=== PATIENT | male | born 1965 | race Caucasian/White ===

== ENCOUNTER 2016-10-08 13:32 | Outpatient (RCR) | payer BC, OTHER ==
[2016-10-08 15:56] LABS: BASOPHILS % (AUTO) 0 % (0-10); EOSINOPHILS # (AUTO) 0.2 10^3/uL (0.0-0.3); EOSINOPHILS % (AUTO) 2 % (0-10); LYMPHOCYTES # (AUTO) 2.4 X 10^3 (1.0-4.0); LYMPHOCYTES % (AUTO) 24 % (12-44); MEAN CORPUSCULAR HEMOGLOBIN 30 PG (25-34); MEAN CORPUSCULAR HGB CONC 34 G/DL (32-36); MEAN CORPUSCULAR VOLUME 89 FL (80-99); MEAN PLATELET VOLUME 8.9 FL (7.4-10.4); MONOCYTES # (AUTO) 0.7 X 10^3 (0.0-1.0); MONOCYTES % (AUTO) 7 % (0-12); NEUTROPHILS # (AUTO) 6.7 X 10^3 (1.8-7.8); NEUTROPHILS % (AUTO) 67 % (42-75); PLATELET COUNT 491 10^3/uL (130-400); RED BLOOD COUNT 5.28 10^6/uL (4.35-5.85)
[2016-10-08 16:16] LABS: ALANINE AMINOTRANSFERASE 14 U/L (0-55); ALBUMIN 4.9 G/DL (3.2-4.5); ANION GAP 11 MMOL/L (5-14); ASPARTATE AMINO TRANSFERASE 14 U/L (5-34); BILIRUBIN,TOTAL 0.5 MG/DL (0.1-1.0); BLOOD UREA NITROGEN 11 MG/DL (7-18); BUN/CREATININE RATIO 12; CALCIUM 10.7 MG/DL (8.5-10.1); CARBON DIOXIDE 27 MMOL/L (21-32); CHLORIDE 100 MMOL/L (98-107); CREATININE SERUM 0.91 MG/DL (0.60-1.30); GFR ESTIMATED > 60; GLUCOSE 81 MG/DL (70-105); SODIUM 138 MMOL/L (135-145); TOTAL PROTEIN 8.8 G/DL (6.4-8.2)
[2016-10-08 16:36] LABS: THYROID STIMULATING HORMONE 11.15 UIU/ML (0.35-4.94)
== END 2017-01-06 | disposition home or self-care (01) ==
LOC: ONC 13:32
PROVIDERS: ATTEND Internal Medicine Hematology & Oncology
DX: R22.1 Localized swelling, mass and lump, neck (principal); E03.9 Hypothyroidism, unspecified; J18.9 Pneumonia, unspecified organism; R13.19 Other dysphagia; Z85.89 Personal history of malignant neoplasm of other organs and systems; Z87.01 Personal history of pneumonia (recurrent)
CPT/HCPCS: 36415; 80053; 84443; 85025; 99214

== ENCOUNTER 2018-02-27 14:27 | Outpatient (RCR) | payer BC ==
[2018-02-27 14:36] LABS: BASOPHILS % (AUTO) 0 % (0-10); EOSINOPHILS # (AUTO) 0.3 10^3/uL (0.0-0.3); EOSINOPHILS % (AUTO) 3 % (0-10); HEMATOCRIT 40 % (40-54); HEMOGLOBIN 14.3 G/DL (13.3-17.7); LYMPHOCYTES # (AUTO) 1.8 X 10^3 (1.0-4.0); LYMPHOCYTES % (AUTO) 19 % (12-44); MEAN CORPUSCULAR HEMOGLOBIN 31 PG (25-34); MEAN CORPUSCULAR HGB CONC 36 G/DL (32-36); MEAN CORPUSCULAR VOLUME 87 FL (80-99); MEAN PLATELET VOLUME 8.2 FL (7.4-10.4); MONOCYTES # (AUTO) 0.9 X 10^3 (0.0-1.0); MONOCYTES % (AUTO) 9 % (0-12); NEUTROPHILS # (AUTO) 6.9 X 10^3 (1.8-7.8); NEUTROPHILS % (AUTO) 69 % (42-75); PLATELET COUNT 332 10^3/uL (130-400); RED BLOOD COUNT 4.58 10^6/uL (4.35-5.85); RED CELL DISTRIBUTION WIDTH 12.7 % (10.0-14.5); WHITE BLOOD COUNT 9.9 10^3/uL (4.3-11.0)
[2018-02-27 14:58] LABS: ALANINE AMINOTRANSFERASE 22 U/L (0-55); ALBUMIN 4.5 GM/DL (3.2-4.5); ALKALINE PHOSPHATASE 72 U/L (40-136); BILIRUBIN,TOTAL 0.5 MG/DL (0.1-1.0); BUN/CREATININE RATIO 13; CALCIUM 10.3 MG/DL (8.5-10.1); CARBON DIOXIDE 24 MMOL/L (21-32); CHLORIDE 99 MMOL/L (98-107); GFR ESTIMATED > 60; GLUCOSE 98 MG/DL (70-105); POTASSIUM 3.8 MMOL/L (3.6-5.0); SODIUM 133 MMOL/L (135-145); TOTAL PROTEIN 7.9 GM/DL (6.4-8.2)
== END 2018-03-09 | disposition home or self-care (01) ==
LOC: ONC 14:27
PROVIDERS: ATTEND Internal Medicine Hematology & Oncology
DX: R13.19 Other dysphagia (principal); R22.1 Localized swelling, mass and lump, neck; Z85.89 Personal history of malignant neoplasm of other organs and systems; Z87.01 Personal history of pneumonia (recurrent)
CPT/HCPCS: 36415; 80053; 84439; 84443; 85025; 99213

== ENCOUNTER → 2018-03-03 | Outpatient (CLI) | payer BC ==
[~2018-03-03] MED LIST: CATHETER FLUSH 10 ML SYR IV PRN; IOHEXOL 350 MG/ML 100 ML (OMNIPAQUE 350) VIAL IV ONE; NS 250 ML (IVPB) BAG IV ONE
--- NOTE | 2018-03-03 18:48 | Diagnostic Imaging Report ---
INDICATION: Left facial pain. TECHNIQUE: Axial imaging through the paranasal sinuses was performed with contrast. Sagittal and coronal reformations were also performed. FINDINGS: The frontal sinuses are clear. There is opacification of the majority of ethmoid air cells. The sphenoid sinus is clear. There is a small amount of fluid in bilateral maxillary sinuses. Mastoids appear to be well aerated. Orbits are unremarkable. Ostiomeatal complexes demonstrate significant mucosal thickening. Nasal septum is midline. IMPRESSION: Findings consistent with ethmoid sinusitis with trace fluid in bilateral maxillary sinuses. No bony destructive changes are seen. Dictated by: Dictated on workstation # [id number]
--- NOTE | 2018-03-03 18:58 | Diagnostic Imaging Report ---
PROCEDURE: CT neck soft tissue with contrast. TECHNIQUE: Multiple contiguous axial images were obtained through the neck after the administration of contrast. INDICATION: Left-sided neck swelling and inability to open the mouth. FINDINGS: Visualized intracranial structures are unremarkable. Posterior nasopharynx is unremarkable. There is some slight asymmetric increased soft tissue in the lateral left portion of the oropharynx. Direct visualization of this area is recommended. Epiglottis and larynx are unremarkable. Thyroid contains multiple nodules bilaterally. There is a very small fluid collection identified in the left masseter musculature, adjacent to the left mandible. This does contain a small drop of gas. This fluid measures 2.7 cm cephalocaudal x 1.7 cm AP x 0.6 cm transverse. The underlying mandible is intact without evidence of bony destructive changes. However, the masseter muscle does appear to be generally enlarged on the left side in comparison to the right. In addition, the pterygoid musculature medial to the mandible on the left side also appears to be enlarged in relation to the right. There does appear to be an osteolytic destructive process slightly more anteriorly within the left mandibular body with violation of the more cephalad cortex. Osteolytic metastasis cannot be excluded. The right mandibular body and ramus appear to be intact. Small submental lymph nodes are present. Jugulodigastric and posterior cervical spaces are unremarkable for lymphadenopathy. IMPRESSION: 1. 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 There is enlargement of the left masseter and left pterygoid musculature. There does appear to be a small fluid collection within the left masseter muscle adjacent to the lateral cortex of the mandible with small amount of gas. An infectious/inflammatory process is suspected. A neoplastic process creating the bony destructive changes cannot be entirely excluded. No cervical lymphadenopathy is seen. Dictated by: Dictated on workstation # [id number]
== END ==
LOC: RAD 17:50
PROVIDERS: ATTEND Internal Medicine Hematology & Oncology
DX: M89.9 Disorder of bone, unspecified (principal); R51 Headache; R22.1 Localized swelling, mass and lump, neck; R22.0 Localized swelling, mass and lump, head; Z85.819 Personal history of malignant neoplasm of unspecified site of lip, oral cavity, and pharynx
CPT/HCPCS: 70487; 70491

== ENCOUNTER → 2018-03-12 | Outpatient (CLI) | payer BC | LOC: WOUNDCARE 12:45 | PROVIDERS: ATTEND Surgery | DX: S01.502A Unspecified open wound of oral cavity, initial encounter (principal); M27.2 Inflammatory conditions of jaws; Z92.3 Personal history of irradiation | CPT/HCPCS: 99213 ==

== ENCOUNTER → 2018-03-31 | Outpatient (CLI) | payer BC | LOC: WOUNDCARE 11:14 | PROVIDERS: ATTEND Surgery | DX: L98.494 Non-pressure chronic ulcer of skin of other sites with necrosis of bone (principal); M27.2 Inflammatory conditions of jaws; L59.8 Other specified disorders of the skin and subcutaneous tissue related to radiation; S01.502A Unspecified open wound of oral cavity, initial encounter; Z92.3 Personal history of irradiation | CPT/HCPCS: 99212 ==

== ENCOUNTER → 2018-04-09 | Outpatient (CLI) | payer BC | LOC: WOUNDCARE 14:17 | PROVIDERS: ATTEND Surgery | DX: L98.494 Non-pressure chronic ulcer of skin of other sites with necrosis of bone (principal); M27.2 Inflammatory conditions of jaws; L59.8 Other specified disorders of the skin and subcutaneous tissue related to radiation; S01.502A Unspecified open wound of oral cavity, initial encounter; Z92.3 Personal history of irradiation | CPT/HCPCS: 99212 ==

== ENCOUNTER 2018-04-15 13:09 | Outpatient (RCR) | payer BC | END 2018-06-18 | disposition home or self-care (01) | LOC: ONC 13:09 | PROVIDERS: ATTEND Internal Medicine Hematology & Oncology | DX: R68.84 Jaw pain (principal); R22.0 Localized swelling, mass and lump, head; R25.2 Cramp and spasm; Z85.01 Personal history of malignant neoplasm of esophagus; Z92.21 Personal history of antineoplastic chemotherapy; Z92.3 Personal history of irradiation | CPT/HCPCS: 99213 ==

== ENCOUNTER → 2018-04-23 | Outpatient (CLI) | payer BC | LOC: WOUNDCARE 12:58 | PROVIDERS: ATTEND Orthopaedic Surgery Hand Surgery | DX: L98.494 Non-pressure chronic ulcer of skin of other sites with necrosis of bone (principal); M27.2 Inflammatory conditions of jaws; L59.8 Other specified disorders of the skin and subcutaneous tissue related to radiation; S01.502A Unspecified open wound of oral cavity, initial encounter; Z92.3 Personal history of irradiation | CPT/HCPCS: 99212 ==